=== PATIENT | female | born 1970 | race Caucasian/White ===

== ENCOUNTER 2023-03-20 08:00 | Outpatient (CLI) | payer OTHER, SELFPAY | END 2023-03-20 08:01 | disposition home or self-care (01) | LOC: KYNREF 08:57 | PROVIDERS: PCP Nurse Practitioner Family; Visit Provider Nurse Practitioner Family | DX: E03.9 Hypothyroidism, unspecified (principal) | CPT/HCPCS: 84443 ==

== ENCOUNTER 2023-03-23 13:42 | Outpatient (REF) | payer OTHER, SELFPAY ==
[2023-03-23 14:23] LABS: Albumin* 4.8 g/dL (3.3-5.0); Chloride* 100 mmol/L (96-114)
[2023-03-23 14:24] LABS: Potassium* 4.5 mmol/L (3.6-5.1); Sodium* 134 mmol/L (135-149)
[2023-03-23 14:26] LABS: Alanine Aminotransferase* 29 U/L (4-35); Aspartate Amino Transferase* 37 U/L (12-35); Blood Urea Nitrogen* 9 mg/dL (7-30); Carbon Dioxide* 28 mmol/L (20-32); Cholesterol* 172 mg/dL (90-199); Estimated Glomerular Filt Rate 68 ml/min; Glucose* 101 mg/dL (60-115)
[2023-03-23 14:27] LABS: Calcium* 9.4 mg/dL (8.4-10.6); HDL Cholesterol* 80 mg/dL (>=50); LDL Cholesterol Calculated 76 mg/dL (<100); Triglycerides* 81 mg/dL (40-149)
[2023-03-23 14:28] LABS: Hemoglobin A1C* 5.11 % (0-5.6)
== END 2023-03-23 13:43 | disposition home or self-care (01) ==
LOC: NPINS 13:42
PROVIDERS: Nurse Practitioner Psychiatric/Mental Health; PCP Nurse Practitioner Family
DX: Z79.899 Other long term (current) drug therapy (principal); F25.0 Schizoaffective disorder, bipolar type; E03.9 Hypothyroidism, unspecified; R73.01 Impaired fasting glucose; Z13.29 Encounter for screening for other suspected endocrine disorder; Z13.21 Encounter for screening for nutritional disorder; Z13.6 Encounter for screening for cardiovascular disorders; Z13.89 Encounter for screening for other disorder; Z51.81 Encounter for therapeutic drug level monitoring
CPT/HCPCS: 80048; 80061; 80178; 82040; 83036; 84443; 84450; 84460